=== PATIENT | male | born 2000 | race Caucasian/White ===

== ENCOUNTER 2019-08-09 15:51 | Emergency (ER) | payer OTHER ==
--- NOTE | 2019-08-09 16:16 | ED ---
Throat Pain/Nasal Congestion - HPI Summary HPI Summary: Patient is 19 y/o M presenting to the ED for a chief complaint of right ear discomfort. Patient reports decreased hearing in the right ear. He notes right cerumen impaction in the past that he needs removed every 8 months. He has tried to use peroxide in the past to remove the earwax without relief. Patient does not have a fever. Any aggravating or alleviating factors is denied. Patient denies seeing an ENT specialist for his symptoms. PMHx of ear infections in denied. - History of Current Complaint Chief Complaint: EDEarPain Time Seen by Provider: 08/09/19 16:09 Hx Obtained From: Patient Onset/Duration: Sudden Onset, Still Present Severity: Moderate Associated Signs And Symptoms: Positive: Negative Cough: None - Allergies/Home Medications Allergies/Adverse Reactions: Allergies Allergy/AdvReac Type Severity Reaction Status Date / Time No Known Allergies Allergy Verified 08/09/19 16:00 Home Medications: Home Medications NK [No Home Medications Reported] 08/09/19 [History Confirmed 08/09/19] PMH/Surg Hx/FS Hx/Imm Hx Previously Healthy: Yes Endocrine/Hematology History: Denies: Hx Diabetes Cardiovascular History: Denies: Hx Hypercholesterolemia, Hx Hypertension Sensory History: Denies: Hx Legally Blind, Hx Deafness Opthamlomology History: Denies: Hx Legally Blind EENT History: Denies: Hx Deafness - Surgical History Surgical History: None Surgery Procedure, Year, and Place: None Infectious Disease History: No Infectious Disease History: Denies: Traveled Outside the [place] in Last 30 Days - Family History Known Family History: Negative: Diabetes - Social History Lives: With Family Alcohol Use: None Hx Substance Use: No Substance Use Type: Reports: None Hx Tobacco Use: No Smoking Status (MU): Never Smoked Tobacco Review of Systems Negative: Fever Positive: Ear Ache - Right ear, Other - Positive decreased hearing in the right ear All Other Systems Reviewed And Are Negative: Yes Physical Exam - Summary Physical Exam Summary: Constitutional: Well-developed, Well-nourished, Alert. (-) Distressed Skin: Warm, Dry HENT: Normocephalic; Atraumatic. Bilateral ear cerumen noted in the external canal, R>L Eyes: Conjunctiva normal Neck: Musculoskeletal ROM normal neck. (-) JVD, (-) Stridor, (-) Tracheal deviation Cardio: Rhythm regular, rate normal, Heart sounds normal; Intact distal pulses; The pedal pulses are 2+ and symmetric. Radial pulses are 2+ and symmetric. (-) Murmur Pulmonary/Chest wall: Effort normal. (-) Respiratory distress, (-) Wheezes, (-) Rales Abd: Soft, (-) tenderness, (-) Distension, (-) Guarding, (-) Rebound Musculoskeletal: (-) Edema Lymph: (-) Cervical adenopathy Neuro: Alert, Oriented x3 Psych: Mood and affect Normal Triage Information Reviewed: Yes Vital Signs On Initial Exam: Initial Vitals Temp Pulse Resp BP Pulse Ox 98.3 F 73 16 136/92 97 08/09/19 15:58 08/09/19 15:58 08/09/19 15:58 08/09/19 15:58 08/09/19 15:58 Vital Signs Reviewed: Yes Procedures - Sedation Patient Received Moderate/Deep Sedation with Procedure: No Diagnostics - Vital Signs Vital Signs Temp Pulse Resp BP Pulse Ox 08/09/19 15:58 98.3 F 73 16 136/92 97 - Laboratory Lab Statement: Any lab studies that have been ordered have been reviewed, and results considered in the medical decision making process. EENT Course/Dx - Course Course Of Treatment: Patient is 19 y/o M presenting to the ED for a chief complaint of right ear discomfort. Patient reports decreased hearing in the right ear. He notes right cerumen impaction in the past that he needs removed every 8 months. He has tried to use peroxide in the past to remove the earwax without relief. Patient does not have a fever. Any aggravating or alleviating factors is denied. Patient denies seeing an ENT specialist for his symptoms. PMHx of ear infections in denied. On exam, bilateral ear cerumen noted in the external canal, R>L. Patient's right ear was irrigated with warm water by ED nurse, cerumen removed, feeling better, comfortable with discharge home. Patient will be discharged with a diagnosis of cerumen impaction. Follow up with PCP within 2-3 days. - Diagnoses Provider Diagnoses: Cerumen impaction Discharge ED - Sign-Out/Discharge Documenting (check all that apply): Patient Departure - Discharge - Discharge Plan Condition: Stable Disposition: HOME Patient Education Materials: Cerumen Impaction (ED) Referrals: Jany Fischer DO [Primary Care Provider] - Additional Instructions: RETURN TO THE EMERGENCY DEPARTMENT FOR CHANGING OR WORSENING SYMPTOMS. Follow up with your primary care physician within 2-3 days. - Billing Disposition and Condition Condition: STABLE Disposition: Home - Attestation Statements Document Initiated by Harleenibkaterina: Yes Documenting Scribe: Karen Lepe Provider For Whom Scribe is Documenting (Include Credential): Ton Logan DO Scribe Attestation: Karen Aiken scribed for Ton Logan DO on 08/09/19 at 1714. Scribe Documentation Reviewed: Yes Provider Attestation: The documentation as recorded by the Karen gilmore accurately reflects the service I personally performed and the decisions made by Ton barnard DO Status of Scribe Document: Viewed
[2019-08-09 16:54] VITALS: BP 131/82
== END 2019-08-09 16:52 | disposition home or self-care (01) ==
LOC: ED 15:51
DX: H61.21 Impacted cerumen, right ear (principal)
CPT/HCPCS: 99281